=== PATIENT | female | born 1955 | race Two or more races ===

== ENCOUNTER 2017-04-29 12:17 | Emergency (ER) | payer MEDICAID ==
[~2017-04-29] VITALS: Ht 165.1 cm; Wt 86.2 kg
[2017-04-29 12:17] VITALS: BP 110/69
[~2017-04-29 12:17] MED LIST: ANAS5POW2 MC; FLUO25PO10 MC; METF500T4 PO; METO-306 PO; METO25TA6 PO
--- NOTE | 2017-04-29 12:17 | NUR ---
C/O ABDOMINAL DISTENTION, +JAUNDICE. PT STATES, ABD DISTENTION DEVELOPING OVER 2 WEEKS. NAD NOTED. PT AAO X4, AMB WITH STEADY GAIT. RR EVEN AND UNLABORED. VSS.
[2017-04-29 12:42] LABS: BASOPHILS # (AUTO) 0.4 /CMM (0.0-0.2); BASOPHILS % (AUTO) 4.2 % (0.0-2.0); EOSINOPHILS # (AUTO) 0.1 /CMM (0.0-0.7); EOSINOPHILS % (AUTO) 1.2 % (0.0-6.0); HEMATOCRIT 38 % (33-45); HEMOGLOBIN 12.7 g/dL (11.5-14.8); LYMPHOCYTES # (AUTO) 1.5 /CMM (0.8-4.8); LYMPHOCYTES % (AUTO) 17.9 % (20.0-44.0); MEAN CORPUSCULAR HEMOGLOBIN 35 PG (26.0-33.0); MEAN CORPUSCULAR HGB CONC 33 g/dl (31.0-36.0); MEAN CORPUSCULAR VOLUME 105 fL (82-100); MONOCYTES # (AUTO) 0.9 /CMM (0.1-1.30); MONOCYTES % (AUTO) 10.2 % (2.0-12.0); NEUTROPHILS # (AUTO) 5.6 /CMM (1.8-8.9); NEUTROPHILS % (AUTO) 66.5 % (43.0-81.0); PLATELET COUNT (AUTO) 131 /CMM (150-450); RDW COEFFICIENT OF VARIATION 14.6 (11.5-15.0); WHITE BLOOD COUNT (AUTO) 8.5 K/uL (4.3-11.0)
[2017-04-29] MEDS ORDERED: MORPHINE SULFATE INJ 4 MG/ML DISP.SYRIN ONE (12:54)
[2017-04-29] MEDS ORDERED: ONDANSETRON HCL/PF 4 MG/2 ML VIAL ONE (12:54)
[2017-04-29 12:58] LABS: INR 1.32 (0.87-1.13); PROTHROMBIN TIME 13.9 SECS (9.5-12.7)
[2017-04-29] MEDS ORDERED: ONDANSETRON HCL/PF 4 MG/2 ML VIAL IVP ONE (13:00)
[2017-04-29] MEDS ORDERED: MORPHINE SULFATE INJ 2 MG/ML DISP.SYRIN IV ONE (13:00)
--- NOTE | 2017-04-29 13:00 | NUR ---
PT SIGNED PARENTECIS CONSENT
[2017-04-29 13:01] LABS: ALBUMIN 2.7 g/dL (3.4-5.0); BILIRUBIN,DIRECT 4.8 mg/dL (0.0-0.2); BILIRUBIN,TOTAL 6.3 mg/dL (0.2-1.0); CALCIUM, SERUM 8.7 mg/dL (8.5-10.1); CREATININE 0.8 mg/dL (0.6-1.3); POTASSIUM 3.8 mmol/L (3.5-5.1); TOTAL PROTEIN, SERUM 7.4 g/dL (6.4-8.2)
--- NOTE | 2017-04-29 13:06 | NUR ---
ULTRASOUND AT BEDSIDE
[2017-04-29] MEDS ORDERED: LIDOCAINE 2%-EPI 1:100,000 30 ML VIAL ONE (13:24)
--- NOTE | 2017-04-29 13:40 | NUR ---
DR LEONARD AT BEDSIDE FOR PARACENTESIS
--- NOTE | 2017-04-29 14:28 | NUR ---
BODY FLUIDS SAMPLE SENT TO LAB
== END 2017-04-29 15:30 | disposition left against medical advice (07) ==
LOC: ER 12:18
DX: K70.30 Alcoholic cirrhosis of liver without ascites (principal); R18.8 Other ascites; E11.9 Type 2 diabetes mellitus without complications; I10 Essential (primary) hypertension; J45.909 Unspecified asthma, uncomplicated; K21.9 Gastro-esophageal reflux disease without esophagitis; Z85.3 Personal history of malignant neoplasm of breast
CPT/HCPCS: 36415; 76705; 80048; 80076; 83690; 85025; 85730; 87070; 89051; 93005; 96374; 96375; 99285; A4606; J2270; J2405; J3490; Z7610

== ENCOUNTER 2017-07-04 14:10 | Emergency (ER) | payer MEDICAID ==
[~2017-07-04] VITALS: Ht 167.6 cm; Wt 80.3 kg
--- NOTE | 2017-07-04 14:15 | NUR ---
PAOLO 38 FROM HOME C/O GENERALIZED WEAKNESS AND FAILURE TO THRIVE. PT AAOX2. PER PT SHE TOOK BLOODY , GABAPENTIN AND HER SON GAVE HER SOME MED LAST NIGHT. NOTED LETHARGIC. SEEN BY MD FOR EVAL. VSS. SAFETY AND COMFORT MEASURES PROVIDED. WILL MONITOR.
[2017-07-04] MEDS ORDERED: PANTOPRAZOLE 40 MG VIAL IV ONE (14:30)
[2017-07-04] MEDS ORDERED: PANTOPRAZOLE 40 MG VIAL ONE (14:31)
--- NOTE | 2017-07-04 14:40 | NUR ---
IV ACCESS STARTED. PT MEDICATED ORDERED. TREATMENT SPECIALIST AT FOR BLOOD DRAW.
[2017-07-04 14:54] LABS: BASOPHILS % (AUTO) 0.5 % (0.0-2.0); EOSINOPHILS # (AUTO) 0.1 /CMM (0.0-0.7); EOSINOPHILS % (AUTO) 2.5 % (0.0-6.0); HEMATOCRIT 40 % (33-45); LYMPHOCYTES # (AUTO) 1.2 /CMM (0.8-4.8); LYMPHOCYTES % (AUTO) 26.6 % (20.0-44.0); MEAN CORPUSCULAR HEMOGLOBIN 32 PG (26.0-33.0); MEAN CORPUSCULAR HGB CONC 33 g/dl (31.0-36.0); MEAN CORPUSCULAR VOLUME 97 fL (82-100); MONOCYTES # (AUTO) 0.4 /CMM (0.1-1.30); MONOCYTES % (AUTO) 8.4 % (2.0-12.0); NEUTROPHILS # (AUTO) 2.7 /CMM (1.8-8.9); PLATELET COUNT (AUTO) 88 /CMM (150-450); RED BLOOD CELL COUNT(AUTO) 4.08 MIL/uL (4.0-5.2); WHITE BLOOD COUNT (AUTO) 4.4 K/uL (4.3-11.0)
[2017-07-04 15:08] LABS: CALCIUM, SERUM 9.4 mg/dL (8.5-10.1); CARBON DIOXIDE 28 mmol/L (21-32); CHLORIDE 104 mmol/L (98-107); CREATININE 0.9 mg/dL (0.6-1.3); GLUCOSE 188 mg/dL (74-106); POTASSIUM 3.8 mmol/L (3.5-5.1); SODIUM SERUM 140 mmol/L (136-145); UREA NITROGEN, BLOOD 11 mg/dL (7-18)
[2017-07-04] MEDS ORDERED: GABA-534 PO (15:12)
[2017-07-04] MEDS ORDERED: LOSA25TA13 PO (15:12)
[2017-07-04] MEDS ORDERED: METO25TA6 PO (15:12)
[2017-07-04] MEDS ORDERED: FURO-145 PO (15:12)
[2017-07-04] MEDS ORDERED: PROP20TA22 PO (15:12)
[2017-07-04] MEDS ORDERED: DICL100G26 TP (15:12)
[2017-07-04] MEDS ORDERED: GLIM2TAB2 PO (15:12)
[2017-07-04 15:14] LABS: ALANINE AMINOTRANSFERASE 23 U/L (12-78); ALBUMIN 3.3 g/dL (3.4-5.0); ALKALINE PHOSPHATASE 99 U/L (46-116); ASPARTATE AMINOTRANSFERASE 48 U/L (15-37); BILIRUBIN,DIRECT 0.8 mg/dL (0.0-0.2); BILIRUBIN,TOTAL 1.9 mg/dL (0.2-1.0); LIPASE 115 U/L (73-393); TOTAL PROTEIN, SERUM 7.6 g/dL (6.4-8.2)
[2017-07-04 15:17] LABS: TROPONIN I < 0.017 ng/mL (0.00-0.056)
[2017-07-04 15:58] LABS: APPEARANCE,URINE Clear (CLEAR); BILIRUBIN,URINE Negative (NEGATIVE); BLOOD, URINE Negative Ery/uL (NEGATIVE); COLOR,URINE Dark (YELLOW); KETONES,URINE Negative (NEGATIVE); LEUKOCYTE ESTERASE ,URINE Negative (NEGATIVE); NITRITE, URINE Negative (NEGATIVE); PH,URINE 6.5 (5.0-8.0); PROTEIN,URINE Negative (NEGATIVE); UGLUCOSE Negative (NEGATIVE); UROBILINOGEN,URINE 0.2 EU/dL (0.2)
--- NOTE | 2017-07-04 16:10 | NUR ---
KELLY CHAVEZ (BROTHER) [phone].
--- NOTE | 2017-07-04 18:25 | NUR ---
CALLED ARTIST SUSPECT ON FILE,KELLY, LEFT A MESSAGE
--- NOTE | 2017-07-04 18:35 | NUR ---
CALLED PATIENT'S MOTHER, SHE WILL COME PICK HER UP
--- NOTE | 2017-07-04 18:45 | NUR ---
Patient discharged to home in stable condition. Written and verbal after care instructions given. Patient verbalizes understanding of instruction. IV removed. Catheter intact and site benign. Pressure and 4x4 applied to site. No bleeding noted.
[2017-07-04 19:07] VITALS: BP 121/84
[2017-07-04] MEDS ORDERED: IV D5/0.45 NACL 1,000 ML IV PRN (19:45)
[2017-07-04] MEDS ORDERED: MAG HYDROX/AL HYDROX/SIMETH 30 ML UDC PO PRN (20:00)
[2017-07-04] MEDS ORDERED: HYDROCODONE/APAP 5/325MG 1 EACH TABLET PO PRN (20:00)
[2017-07-04] MEDS ORDERED: MAGNESIUM HYDROXIDE 30 ML UDC PO PRN (20:00)
[2017-07-04] MEDS ORDERED: Z GUARD REMEDY 2 OZ OINT TP PRN (20:00)
[2017-07-04] MEDS ORDERED: ACETAMINOPHEN 325 MG TABLET PO PRN (20:00)
[2017-07-04] MEDS ORDERED: ZOLPIDEM TARTRATE 5 MG TABLET PO PRN (20:00)
[2017-07-04] MEDS ORDERED: Folic acid 1 MG in IV D5W 50 ML IV SCH (20:00)
[2017-07-04] MEDS ORDERED: Thiamine 100 MG in IV D5W 50 ML IV SCH (20:00)
[2017-07-04] MEDS ORDERED: ONDANSETRON HCL/PF 4 MG/2 ML VIAL IVP PRN (20:00)
[2017-07-04 20:26] LABS: AMYLASE 35 U/L (25-115); LIPASE 101 U/L (73-393)
[2017-07-04] MEDS ORDERED: GABAPENTIN 300 MG CAPSULE PO SCH (22:00)
[2017-07-05] MEDS ORDERED: PANTOPRAZOLE 40 MG TABLET.DR PO SCH (07:30)
[2017-07-05] MEDS ORDERED: LOSARTAN POTASSIUM 25 MG TABLET PO SCH (09:00)
[2017-07-05] MEDS ORDERED: PROPRANOLOL HCL 20 MG PO SCH (09:00)
[2017-07-05] MEDS ORDERED: GLIMEPIRIDE 2 MG PO SCH (09:00)
[2017-07-05] MEDS ORDERED: METOPROLOL TARTRATE 25 MG TABLET PO SCH (09:00)
== END 2017-07-04 19:09 | disposition home or self-care (01) ==
LOC: ER 14:11 → MED 18:13 → UNDOADMIN 18:13 → ER 19:09
DX: R41.82 Altered mental status, unspecified (principal); J45.909 Unspecified asthma, uncomplicated; K21.9 Gastro-esophageal reflux disease without esophagitis; I10 Essential (primary) hypertension
CPT/HCPCS: 36415; 70450; 71010; 80048; 80076; 81001; 82140; 82150; 82553; 83036; 83690 ×2; 84484; 85025; 87081; 87086; 93005; 96374; 99285; A4606; C9113; G0480; Z7610; 81000-TC; J3411; J3490; J7060

== ENCOUNTER 2017-11-21 00:21 | Inpatient (IN) | payer MEDICAID ==
[2017-11-21] VITALS (67 sets, daily range): BP systolic 38–143; BP diastolic 20–112
[~2017-11-21] VITALS: Ht 167.6 cm; Wt 83.5 kg
[~2017-11-21 00:21] MED LIST changes: -ANAS5POW2 MC; +DICL100G26 TP; -FLUO25PO10 MC; +FURO-145 PO; +GABA-534 PO; +GLIM2TAB2 PO; +LOSA25TA13 PO; -METO-306 PO; +PROP20TA22 PO
--- NOTE | 2017-11-21 00:40 | NUR ---
PAOLO COLLINS HOME FOR REPORT ACTIVELY VOMITING BLOOD S/P DRINKING WINE X TODAY. AOX3 W/ RESP EVEN & UNLABORED, TACHYCARDIC, VOMITING DARK RED GASTRIC CONTENT W/ NO ASPIRATION NOTED. PLACED W/ HOB ELEVATED, ON CONTINUOUS PULSE-OX W/ CARDIAC MONITORING. IVHL ESTABLISHED, LABS DRAWN & SENT.
[2017-11-21] MEDS ORDERED: PANTOPRAZOLE 40 MG VIAL ONE (00:42)
[2017-11-21] MEDS ORDERED: ONDANSETRON HCL/PF 4 MG/2 ML VIAL ONE (00:43)
[2017-11-21 00:48] LABS: BASOPHILS # (AUTO) 0.1 /CMM (0.0-0.2); BASOPHILS % (AUTO) 0.8 % (0.0-2.0); EOSINOPHILS # (AUTO) 0.2 /CMM (0.0-0.7); EOSINOPHILS % (AUTO) 1.6 % (0.0-6.0); HEMATOCRIT 34 % (33-45); HEMOGLOBIN 11.8 g/dL (11.5-14.8); LYMPHOCYTES # (AUTO) 2.2 /CMM (0.8-4.8); MEAN CORPUSCULAR HEMOGLOBIN 34 PG (26.0-33.0); MEAN CORPUSCULAR HGB CONC 35 g/dl (31.0-36.0); MEAN CORPUSCULAR VOLUME 96 fL (82-100); MONOCYTES % (AUTO) 9.2 % (2.0-12.0); NEUTROPHILS # (AUTO) 7.2 /CMM (1.8-8.9); NEUTROPHILS % (AUTO) 67.4 % (43.0-81.0); PLATELET COUNT (AUTO) 105 /CMM (150-450); RDW COEFFICIENT OF VARIATION 15.2 (11.5-15.0); RED BLOOD CELL COUNT(AUTO) 3.49 MIL/uL (4.0-5.2); WHITE BLOOD COUNT (AUTO) 10.6 K/uL (4.3-11.0)
[2017-11-21] MEDS ORDERED: ONDANSETRON HCL/PF 4 MG/2 ML VIAL IVP ONE (01:00)
[2017-11-21] MEDS ORDERED: PANTOPRAZOLE 80 MG in IV NS 0.9% 500 ML IV ONE (01:00)
[2017-11-21] MEDS ORDERED: IV NS 0.9% 500 ML BAG IV ONE (01:00)
[2017-11-21 01:01] LABS: CALCIUM, SERUM 8.8 mg/dL (8.5-10.1); CARBON DIOXIDE 23 mmol/L (21-32); CHLORIDE 97 mmol/L (98-107); GLUCOSE 158 mg/dL (74-106); POTASSIUM 4.4 mmol/L (3.5-5.1); SODIUM SERUM 132 mmol/L (136-145); UREA NITROGEN, BLOOD 17 mg/dL (7-18)
[2017-11-21 01:04] LABS: INR 1.27 (0.87-1.13); PROTHROMBIN TIME 13.2 SECS (9.5-12.7)
[2017-11-21 01:07] LABS: ALANINE AMINOTRANSFERASE 64 U/L (12-78); ALBUMIN 3.3 g/dL (3.4-5.0); ALKALINE PHOSPHATASE 148 U/L (46-116); ASPARTATE AMINOTRANSFERASE 138 U/L (15-37); BILIRUBIN,DIRECT 0.9 mg/dL (0.0-0.2); BILIRUBIN,TOTAL 1.9 mg/dL (0.2-1.0); LIPASE 185 U/L (73-393); TOTAL PROTEIN, SERUM 8.2 g/dL (6.4-8.2)
[2017-11-21 01:08] LABS: TROPONIN I < 0.017 ng/mL (0.00-0.056)
--- NOTE | 2017-11-21 01:28 | NUR ---
pt does not know what medications she takes at home, will call son to bring home medications.
--- NOTE | 2017-11-21 01:42 | NUR ---
SENT TO CT.
--- NOTE | 2017-11-21 02:24 | NUR ---
pt assisted to bedpan, perineal care provided. pt requesting protein shake. pt instructed unable to eat at this time and must remain NPO until further notice. On continuous monitoring.
--- NOTE | 2017-11-21 03:31 | NUR ---
Report given to TEX Thorpe for pt admission tele rm [id number].
--- NOTE | 2017-11-21 04:05 | NUR ---
DORR OPERATOR ADMITTING NOTES: ADMITTED A 62 YO FEMALE PATIENT WHO WAS BROUGHT BY AMBULANCE TO ER AFTER HAVING BLOODY VOMITING, PER PATIENT, AFTER DRINKING WINE AT HOME. PATIENT WAS BROUGHT TO TELE FLOOR VIA JOJO, AOX3, ON ROOM AIR, BREATHING EVEN AND UNLABORED. BREATH SOUNDS CLEAR TO AUSCULTATION. PATIENT COMPLAINS OF NAUSEA AT THIS TIME. MAINTAINED HOB ELEVATED. ON TELE MONITOR: SINUS TACHYCARDIA AT RATE OF 115. PIV OVER RFA G 18 INTACT AND INFUSING WITH PROTONIX DRIP RUNNING AT 52 ML/HR. NO SIGNS OF INFILTRATION NOTED. PROVIDED FOR COMFORT AND SAFETY. BED IN LOWEST AND LOCKED POSITION, SIDERAILS UP X3, CALL LIGHT WITHIN REACH. WILL CONT TO MONITOR.
[2017-11-21] MEDS ORDERED: IV NS 0.9% 1,000 ML IV PRN ×2 (04:45→19:30)
[2017-11-21] MEDS ORDERED: ZOLPIDEM TARTRATE 5 MG TABLET PO PRN (05:00)
[2017-11-21] MEDS ORDERED: MAG HYDROX/AL HYDROX/SIMETH 30 ML UDC PO PRN (05:00)
[2017-11-21] MEDS ORDERED: MAGNESIUM HYDROXIDE 30 ML UDC PO PRN (05:00)
[2017-11-21] MEDS ORDERED: HYDROCODONE/APAP 5/325MG 1 EACH TABLET PO PRN (05:00)
[2017-11-21] MEDS ORDERED: ACETAMINOPHEN 325 MG TABLET PO PRN (05:00)
[2017-11-21] MEDS ORDERED: Z GUARD REMEDY 2 OZ OINT TP PRN (05:00)
--- NOTE | 2017-11-21 05:06 | NUR ---
RN NOTES: PT VOMITED BRIGHT RED, BLOODY EMESIS, NOTED WITH CLOTS. PAGED DR MENESES TO INFORM.
[2017-11-21] MEDS ORDERED: METOCLOPRAMIDE HCL 10 MG/2 ML VIAL ONE (05:29)
[2017-11-21] MEDS ORDERED: METOCLOPRAMIDE HCL 10 MG/2 ML VIAL IV PRN (05:30)
--- NOTE | 2017-11-21 05:44 | NUR ---
RN NOTES: ASKED PATIENT FOR IV TO BE REINSERTED OVER L ARM, HOWEVER, PATIENT REFUSED AT THIS TIME, SAYING SHE WAS "TOO TIRED AND NAUSEOUS" AND ASKED THAT IT BE DONE AFTER A COUPLE OF HOURS.
[2017-11-21] MEDS: ONDANSETRON HCL/PF 4 MG/2 ML VIAL IVP PRN ×2 (06:56→12:09)
--- NOTE | 2017-11-21 07:20 | NUR ---
RN NOTES PT IS SITTING UP IN BED, VOMITING BRIGHT RED BLOODY AND CLOTTED EMESIS. BP 150/78, P 130'S. O2 PLACED ON PT. SON IS AT BEDSIDE. SAFETY MEASURES ARE IN PLACE, CALL LIGHT IS IN REACH. WILL CONTINUE TO MONITOR AND INFORM MD.
--- NOTE | 2017-11-21 07:32 | NUR ---
RN NOTES: PATIENT VOMITED BRIGHT RED BLOODY EMESIS, WITH CLOTTED BLOOD, ON EMESIS BASIN, APPROX 200 ML. BPCHECKED AT 151/81, HR: 136 AT THIS TIME, O2 SAT 94%. PATIENT ALSO COMPLAINING OF 5/10 ABDL PAIN. CALLED BRADLEY ROSS TYPEWRITER ASSEMBLER TO REPORT. TYPEWRITER ASSEMBLER ORDERED FOR STAT H AND H, AND MORPHINE 2 MG IV ONE DOSE ONLY. DECLINED TO HAVE IV ANXIOLYTIC ORDERED AT THIS TIME (REQUESTED BY SON, AMELIA). NOTED AND CARRIED OUT.
--- NOTE | 2017-11-21 07:40 | NUR ---
LUBE TECHNICIAN CLOSING NOTES: PATIENT IN BED, AOX3, ON O2 AT 2 LPM VIA NC, BREATHING EVEN AND UNLABORED. PATIENT IS STILL NAUSEOUS. ON TELE MONITORING; SINUS TACHYCARDIA AT RATE OF 116. DUE MEDS GIVEN. PROVIDED FOR COMFORT AND SAFETY. BED IN LOWEST AND LOCKED POSITION, SIDERAILS UP X 3, HOB ELEVATED. SON AT BEDSIDE. ENDORSED TO AM RN FOR DWIGHT.
[2017-11-21] MEDS ORDERED: TRAM50TA2 PO (07:57)
[2017-11-21] MEDS ORDERED: MAGN400T6 PO (07:57)
[2017-11-21] MEDS ORDERED: HYDR-552 PO (07:57)
[2017-11-21] MEDS ORDERED: GLIM2TAB2 PO (07:57)
[2017-11-21] MEDS ORDERED: CLON0.5T4 PO (07:57)
[2017-11-21] MEDS ORDERED: VIT D PO (07:57)
[2017-11-21] MEDS ORDERED: LACT10SO PO (07:57)
[2017-11-21] MEDS ORDERED: FLUO-119 PO (07:57)
[2017-11-21] MEDS ORDERED: METO25TA6 PO (07:57)
[2017-11-21] MEDS ORDERED: MORPHINE SULFATE INJ 4 MG/ML DISP.SYRIN IV ONE (08:00)
[2017-11-21] MEDS ORDERED: MORPHINE SULFATE INJ 2 MG/ML DISP.SYRIN IV ONE (08:00)
[2017-11-21] MEDS: PANTOPRAZOLE 40 MG VIAL IV SCH ×2 (08:02→21:00)
[2017-11-21 08:06] LABS: HEMATOCRIT 25 % (33-45); HEMOGLOBIN 8.8 g/dL (11.5-14.8); MEAN CORPUSCULAR HEMOGLOBIN 34 PG (26.0-33.0); MEAN CORPUSCULAR HGB CONC 35 g/dl (31.0-36.0); MEAN CORPUSCULAR VOLUME 98 fL (82-100); PLATELET COUNT (AUTO) 96 /CMM (150-450); WHITE BLOOD COUNT (AUTO) 9.3 K/uL (4.3-11.0)
--- NOTE | 2017-11-21 10:00 | NUR ---
FRAMING MANAGER NOTES RECEIVED PATIENT FROM MARIA ISABEL NICE FROM MED SURG UNIT, PATIENT AOX3, ON TELE MONITOR ST, CURRENTLY NPO FOR GI BLEED, RECEIVING PROTONIX GTT R FA 18GTT, AND NS @ 75 ML/HR, IN DIAPER, BED IN LOW AND LOCKED POSITION, CALL LIGHT WITHIN REACH WILL CONTINUE TO MONITOR.
--- NOTE | 2017-11-21 10:20 | NUR ---
RN NOTES PT TRANSFERRED TO ICU, REPORT GIVEN TO JUAN CARLOS NICE
[2017-11-21 10:47] LABS: HEMOGLOBIN 11.8 g/dL (11.5-14.8)
[2017-11-21] MEDS ORDERED: IV D5/ 0.9% NACL 1,000 ML IV PRN (11:00)
[2017-11-21] MEDS ORDERED: LORAZEPAM INJ 2 MG/ML VIAL IV PRN (11:00)
[2017-11-21] MEDS: OCTREOTIDE 1,250 MCG in IV NS 0.9% 247.5 ML IV PRN (11:51)
[2017-11-21 12:49] LABS: HEMOGLOBIN 8.4 g/dL (11.5-14.8)
--- NOTE | 2017-11-21 14:00 | NUR ---
MARINE SERVICE OPERATOR NOTES PATIENT RECEIVED ATIVAN IV DUE TO RESTLESSNESS, NO SIGNS OF DISTRESS WILL CONTINUE TO MONITOR.
--- NOTE | 2017-11-21 14:48 | NUR ---
HUB BORER NOTES PATIENT RECEIVING FIRST FIRST UNIT OF BLOOD. NO SIGNS OF DISTRESS OR ADVERSE REACTIONS.
--- NOTE | 2017-11-21 15:45 | NUR ---
SODIUM CHLORITE OPERATOR NOTES PATIENT IS RECEIVING BLOOD AND BLOOD PRESSURE TRENDING DOWN 70/32 AND 73/[address] HOBBS ORDERS GIVEN TO BOLUS 1L NS. WILL CARRY OUT ORDERS AND WILL CONTINUE TO MONITOR.
[2017-11-21] MEDS ORDERED: IV NS 0.9% 1,000 ML IV ONE (16:00)
[2017-11-21] MEDS ORDERED: NOREPINEPHRINE 8 MG in IV D5W 500 ML IV PRN (16:00)
--- NOTE | 2017-11-21 16:00 | NUR ---
RATE SUPERVISOR INITIAL NOTE RECEIVED REPORT FROM JUAN CARLOS NICE. PT IN BED. AWAKE AND ALERT WITH SOME MOANING. PT IS CURRENTLY RECEIVING BLOOD TRANSFUSION. PT IS ALSO RECEIVING 1L BOLUS FOR HYPOTENSION BP IN THE 70'S. LUNG SOUNDS CLEAR. BOWEL SOUNDS PRESENT. PT IS COMPLAINING OF ABDOMINAL PAIN. PULSES PRESENT. IV PATENT AND INTACT. BED IN LOW LOCKED POSITION. CALL LIGHT WITHIN REACH. WILL CONTINUE TO MONITOR.
[2017-11-21] MEDS: NICOTINE PATCH (14MG) 14 MG PATCH.TD24 TD SCH (16:05)
--- NOTE | 2017-11-21 16:05 | NUR ---
COFFEE FARMER NOTES GAVE REPORT TO TEX BEDOYA FOR CONTINUITY OF CARE, PATIENT RECEIVING BLOOD TRANSFUSION AND FLUIDS AT THIS TIME. ALL NEEDS AT THIS TIME
--- NOTE | 2017-11-21 16:40 | NUR ---
FENCE INSTALLER BLOOD TRANSFUSION COMPLETE. PT TOLERATED WELL. 1L BOLUS STILL CURRENTLY RUNNING. WILL CONTINUE TO CLOSELY MONITOR.
--- NOTE | 2017-11-21 17:45 | NUR ---
PROVIDER RELATIONS MANAGER PT ON LEVOPHED FOR LOW BP IN THE 70'S. PICC LINE NURSE AT BEDSIDE TO PLACE LINE. DR HOBBS AGREES WITH PICC LINE PLACEMENT. PT SIGNED CONSENT. WILL CONTINUE TO CLOSELY MONITOR.
--- NOTE | 2017-11-21 18:00 | NUR ---
BAR ATTENDANT PT HAS A NOTED RHYTHM CHANGE ON THE MONITOR, FROM NSR WITH PAC TO AFIB. WILL VERIFY WITH EKG.
[2017-11-21] MEDS: SUCRALFATE 1 G TABLET PO SCH (18:09)
[2017-11-21] MEDS: BLOOD SUGAR DIAGNOSTIC 1 EACH STRIP IN SCH (18:09)
--- NOTE | 2017-11-21 18:35 | NUR ---
POULTRY TRIMMER PT HR CONVERTED INTO SINUS TACHY WITH A RATE OF 140'S.
[2017-11-21 18:48] LABS: EOSINOPHILS % (AUTO) 0.2 % (0.0-6.0); HEMATOCRIT 21 % (33-45); HEMOGLOBIN 7.1 g/dL (11.5-14.8); LYMPHOCYTES # (AUTO) 1.3 /CMM (0.8-4.8); LYMPHOCYTES % (AUTO) 7.8 % (20.0-44.0); MEAN CORPUSCULAR HEMOGLOBIN 32 PG (26.0-33.0); MEAN CORPUSCULAR HGB CONC 33 g/dl (31.0-36.0); MEAN CORPUSCULAR VOLUME 97 fL (82-100); MONOCYTES # (AUTO) 1.9 /CMM (0.1-1.30); MONOCYTES % (AUTO) 11.2 % (2.0-12.0); NEUTROPHILS # (AUTO) 13.6 /CMM (1.8-8.9); NEUTROPHILS % (AUTO) 80.8 % (43.0-81.0); PLATELET COUNT (AUTO) 74 /CMM (150-450); RDW COEFFICIENT OF VARIATION 18.8 (11.5-15.0); WHITE BLOOD COUNT (AUTO) 16.9 K/uL (4.3-11.0)
--- NOTE | 2017-11-21 18:55 | NUR ---
CARVING MACHINE OPERATOR PT ABG NOT GOOD. REPORTED TO DR URBINA. ORDERS RECEIVED. WILL CARRY OUT AND CONTINUE TO MONITOR.
[2017-11-21] MEDS ORDERED: SUCCINYLCHOLINE CHLORIDE 20 MG/ML VIAL IV ONE (19:00)
[2017-11-21] MEDS ORDERED: ETOMIDATE 2 MG/ML VIAL IV ONE (19:00)
[2017-11-21] MEDS ORDERED: NOREPINEPHRINE 4 MG/4 ML AMPUL IV ONE ×2 (19:21→19:22)
[2017-11-21] MEDS ORDERED: PHENYLEPHRINE 10 MG/ML VIAL ONE (19:22)
[2017-11-21] MEDS ORDERED: PHENYLEPHRINE 40 MG in IV D5W 250 ML IV PRN (19:30)
--- NOTE | 2017-11-21 19:30 | NUR ---
SPRAY FOAM INSTALLER DR RAINA DAVID MD INTUBATED PT WITH ANABEL RT AT BEDSIDE.
[2017-11-21 19:43] LABS: ABG BASE EXCESS -27.8 mmol/L; ABG OXYGEN SATURATION 95.6 % (92.0-98.5); ABG PCO2 17.8 mmHg (35.0-45.0); ABG PH 6.887 (7.350-7.450); ABG PO2 130.9 mmHg (75.0-100.0); AaDO2 76.4 mmHg; COHb 0.3 % (0.5-1.5); MetHb 1.1 % (0.0-1.5); O2Hb 94.3 % (94.0-97.0); SITE, ABG Left Radial; VENT MODE, BG N/C
--- NOTE | 2017-11-21 19:52 | NUR ---
IMMIGRATION PATROL INSPECTOR OR TEAM AT BEDSIDE WITH DR STANTON. THEY ARE PREPARING TO DO A EGD. WILL CONTINUE TO MONITOR.
[2017-11-21 20:11] LABS: ABG BASE EXCESS -29.1 mmol/L; ABG PCO2 29.2 mmHg (35.0-45.0); ABG PH 6.763 (7.350-7.450); ABG PO2 452.3 mmHg (75.0-100.0); AaDO2 231.5 mmHg; COHb 0.3 % (0.5-1.5); O2Hb 97.7 % (94.0-97.0); PEEP,BG 5 cm H2O; SITE, ABG Left Brachial; VENT MODE, BG A/C 20 450 100 +5; VT, ABG 450 mL
[2017-11-21] MEDS ORDERED: SODIUM BICARBONATE SYR 50 MEQ/50 ML DISP.SYRIN ONE ×2 (20:20→20:28)
--- NOTE | 2017-11-21 20:20 | NUR ---
BEHAVIORAL HEALTH CONSULTANT OG TUBE REMOVED PER DR STANTON REQUEST. SAID TO RE INSERT AFTER PROCEDURE.
--- NOTE | 2017-11-21 20:25 | NUR ---
LOAN COUNSELOR 1ST UNIT OF PRBC BEING ADMINISTERED. DR STANTON AND OR TEAM AT BEDSIDE PERFORMING AN EGD. WILL CONTINUE TO MONITOR.
[2017-11-21] MEDS ORDERED: SODIUM BICARBONATE SYR 50 MEQ/50 ML DISP.SYRIN IV ONE (20:30)
[2017-11-21] MEDS ORDERED: Sodium Bicarbonate 150 MEQ in IV D5W 1,000 ML IV PRN (20:30)
[2017-11-21] MEDS ORDERED: ANESTHESIA TRAY IN PYXIS 1 EA TRAY MC ONE (20:44)
[2017-11-21] MEDS ORDERED: VASOPRESSIN INJ 50 UNIT in IV D5W 497.5 ML IV PRN (21:30)
--- NOTE | 2017-11-21 22:45 | NUR ---
MATRIX INSPECTOR FAITH RN RECOVERED PT. PT IS INTUBATED AND SEDATED. ON PROPOFOL AND 2 PRESSORS RUNNING FOR BP SUPPORT. WILL CONTINUE TO MONITOR.
[2017-11-21] MEDS: NOREPINEPHRINE 16 MG in IV D5W 500 ML IV PRN (22:54)
[2017-11-21] MEDS ORDERED: NOREPINEPHRINE 16 MG in IV D5W 500 ML IV PRN (23:00)
[2017-11-21 23:21] LABS: HEMOGLOBIN 8.8 g/dL (11.5-14.8)
[2017-11-21] MEDS: PHENYLEPHRINE 80 MG in IV D5W 250 ML IV PRN (23:46)
[2017-11-21] MEDS: PROPOFOL 10MG/ML 50ML 50 ML IV PRN (23:51)
[2017-11-22] VITALS (71 sets, daily range): BP systolic 53–156; BP diastolic 20–114
[2017-11-22] MEDS ORDERED: PROPOFOL 100 ML IV PRN
[2017-11-22] MEDS: BLOOD SUGAR DIAGNOSTIC 1 EACH STRIP IN SCH ×4 (00:26→12:07)
[2017-11-22] MEDS ORDERED: DEXTROSE 50%-WATER 50 ML DISP.SYRIN IV PRN (00:30)
--- NOTE | 2017-11-22 01:00 | NUR ---
INFANTRY UNIT LEADER PT HR SUSTAINED HIGH 160, NOTIFIED NO NEW ORDERS. ALSO NOTIFIED ABOUT LACTIC REFLEX 25.5. NEW ORDERS RECEIVED FOR MODERATE SS COVERAGE. WILL CONTINUE TO MONITOR.
[2017-11-22] MEDS: INSULIN REGULAR, HUMAN 100 UNIT/ML 3 ML VIAL SQ PRN ×3 (01:30→12:09)
--- NOTE | 2017-11-22 01:31 | NUR ---
BUSINESS PROCESS ANALYST HR CONVERTED TO 98.
[2017-11-22] MEDS: PROPOFOL 10MG/ML 50ML 50 ML IV PRN ×7 (01:46→14:10)
[2017-11-22 03:15] LABS: HEMOGLOBIN 7.7 g/dL (11.5-14.8)
--- NOTE | 2017-11-22 03:25 | NUR ---
ARABIC LINGUIST EPIC PUNCH OPERATOR NOTIFIED ABOUT H/H TRENDING DOWN. NO NEW ORDERS AT THIS TIME. WILL CONTINUE TO MONITOR.
[2017-11-22] MEDS ORDERED: VASOPRESSIN INJ 20 UNIT/ML VIAL ONE (04:12)
--- NOTE | 2017-11-22 04:30 | NUR ---
MANAGER OF WAREHOUSE PT STARTED ON THIRD PRESSORS, VASOPRESSIN FOR BLOOD PRESSURE SUPPORT.
[2017-11-22 05:29] LABS: BASOPHILS % (AUTO) 0.1 % (0.0-2.0); EOSINOPHILS % (AUTO) 0.2 % (0.0-6.0); HEMATOCRIT 23 % (33-45); HEMOGLOBIN 7.7 g/dL (11.5-14.8); LYMPHOCYTES # (AUTO) 1.7 /CMM (0.8-4.8); LYMPHOCYTES % (AUTO) 9.4 % (20.0-44.0); MEAN CORPUSCULAR HEMOGLOBIN 33 PG (26.0-33.0); MEAN CORPUSCULAR HGB CONC 34 g/dl (31.0-36.0); MEAN CORPUSCULAR VOLUME 96 fL (82-100); MONOCYTES # (AUTO) 0.7 /CMM (0.1-1.30); MONOCYTES % (AUTO) 3.7 % (2.0-12.0); NEUTROPHILS # (AUTO) 15.9 /CMM (1.8-8.9); NEUTROPHILS % (AUTO) 86.6 % (43.0-81.0); RDW COEFFICIENT OF VARIATION 19.5 (11.5-15.0); RED BLOOD CELL COUNT(AUTO) 2.35 MIL/uL (4.0-5.2); WHITE BLOOD COUNT (AUTO) 18.4 K/uL (4.3-11.0)
[2017-11-22] MEDS: SUCRALFATE 1 G TABLET PO SCH ×3 (05:31→11:07)
[2017-11-22] MEDS: PHENYLEPHRINE 80 MG in IV D5W 250 ML IV PRN ×2 (05:33→10:13)
[2017-11-22 05:48] LABS: CALCIUM, SERUM 6.8 mg/dL (8.5-10.1); CREATININE 2.7 mg/dL (0.6-1.3); MAGNESIUM 1.6 mg/dL (1.8-2.4)
[2017-11-22 05:49] LABS: PLATELET COUNT (AUTO) 37 /CMM (150-450)
--- NOTE | 2017-11-22 06:00 | NUR ---
BATH STEWARD/STEWARDESS PT AM BS 415. COVERAGE GIVEN. EPIC SCREEN REPAIRER CRUSHER NOTIFIED.
--- NOTE | 2017-11-22 06:05 | NUR ---
TEMPLATE MAKER CRITICAL LABS K 7.1, phos 9.0, co2 5. Will report to clinical practitioner.
[2017-11-22 06:07] LABS: POTASSIUM 7.2 mmol/L (3.5-5.1)
[2017-11-22] MEDS: NOREPINEPHRINE 16 MG in IV D5W 500 ML IV PRN ×2 (06:41→13:20)
--- NOTE | 2017-11-22 06:50 | NUR ---
MULTIPLE GAMES DEALER ED GLASS BREAKER CALLED KELLY BROTHER PF PATIENT ABOUT PT CONDITION. PT IS VERY CRITICAL AND UNSTABLE. ED DISCUSSED THE CASE THOROUGHLY WITH HIM AND KELLY AGREED DNR IS THE BEST CODE STATUS. WILL ENDORSE TO EPIC TEAM.
--- NOTE | 2017-11-22 07:15 | NUR ---
BOX ATTACHER NOTES RECEIVED PATIENT SEDATED , ETT 7. WITH SPO2 OF 100% VIA MECHANICAL VENTILATOR SETTINGS ORDERED , DEEP SHALLOW RESPIRATIONS , ST 120 ON BEDSIDE MONITOR , NGT ON LOW INTERMITTENT SUCTION DRAINING WITH BLOODY OUTPUT , FC DRAINING VIA GRAVITY WITH CLEAR YELLOW URINE , AYESHA PICC LINE PATENT AND INTACT WITH LEVOPHED @ 40MCG/MIN , NEOSYNEPRINE @ 300MCG/MIN , VASOPRESSIN @ 0.04U/MIN , SANDOSTATIN @ 50ML/HR , DIPRIVAN @ 40MCG/KG/MIN , NA BICARBONATE DRIP @ 125ML/HR INFUSING WELL , WILL CONTINUE TO MONITOR
--- NOTE | 2017-11-22 07:30 | NUR ---
HOSE SPRAYER NOTES SEEN AND EVALUAED BY DR URBINA , DISCUSSED LABS , ABG . PT ON MULTIPLE PRESSORS , CODE STATUS CLIVER MD AWARE
[2017-11-22] MEDS: LORAZEPAM INJ 2 MG/ML VIAL IV PRN ×3 (08:52→15:35)
[2017-11-22] MEDS: PANTOPRAZOLE 40 MG VIAL IV SCH (08:52)
[2017-11-22] MEDS: NICOTINE PATCH (14MG) 14 MG PATCH.TD24 TD SCH (08:52)
--- NOTE | 2017-11-22 09:30 | NUR ---
KERSEY DEPARTMENT SUPERVISOR NOTES RECEIVED A CALL FROM DR STANTON, DISCUSSED LABS , PUPILS FIXED AND DILATED 5MM , SR - ST 110 WITH EPISODES OF AFIB ON BEDSIDE MONITOR , NGT ON LOW INTERMITTENT SUCTION WITH MODERATE AMOUNT OF BLOODY SECRETION , FC DRAINING WITH LOW URINE OUTPUT , ON 3 PRESSORS MAXED DOSE . MD PARK
--- NOTE | 2017-11-22 09:50 | NUR ---
HEATER FURNACE NOTES SEEN AND EVALUATED BY DR MERRILL, DISCUSSED LABS , ABG RESULT , ORDERED TO CHANGE VENT SETTINGS TO AC 26 , TV 450 FIO2 100 PEEP O SPO2 OF 72-75% , PUPILS FIXED AND DILATED 5MM , SR - ST 110 WITH EPISODES OF AFIB ON BEDSIDE MONITOR , NGT ON LOW INTERMITTENT SUCTION WITH MODERATE AMOUNT OF BLOODY SECRETION , FC DRAINING WITH LOW URINE OUTPUT , NO SODIUM BICARB DRIP AVAILABLE PER [facility] , VERIFIED IF HE STILL WANT THE ABG @ 0800 , AWARE
[2017-11-22 10:10] LABS: NEUTROPHILS % (MANUAL) 77 (42-76)
[2017-11-22 10:11] LABS: LYMPHOCYTES % (MANUAL) 23 % (16-48)
[2017-11-22] MEDS: OCTREOTIDE 1,250 MCG in IV NS 0.9% 247.5 ML IV PRN ×2 (11:35→11:36)
--- NOTE | 2017-11-22 11:45 | NUR ---
X RAY TECHNICIAN NOTES SEEN AND EVALUATED BY DR HOBBS , DISCUSSED LABS , ABG RESULT , VENT SETTINGS CHANGED TO AC 26 , TV 450 FIO2 100 PEEP O SPO2 OF 72-75% , PUPILS FIXED AND DILATED 5MM , SR - ST 110 WITH EPISODES OF AFIB ON BEDSIDE MONITOR , NGT ON LOW INTERMITTENT SUCTION WITH MODERATE AMOUNT OF BLOODY SECRETION , FC DRAINING WITH LOW URINE OUTPUT , NO SODIUM BICARB DRIP AVAILABLE PER [facility] , PER DR HOBBS START PT ON NS @ 125ML/HR , S/P EGD DISCUSSED RESULT , MD PARK
[2017-11-22] MEDS ORDERED: IV NS 0.9% 1,000 ML IV PRN ×2 (12:00→15:00)
[2017-11-22] MEDS ORDERED: HYDROGEL DRESSING 90 GM TUBE TP PRN (13:30)
--- NOTE | 2017-11-22 14:45 | NUR ---
SPINNER BOX NOTES CALLED DR HOBBS DISCUSSED THAT ALL THE FAMILY IS HERE AND READY FOR COMFOT MEASURES , RECEIVED ORDER TO STOP ALL THE MEDICATIONS / PRESSORS , AND CHANGED FIO2 TO 30% , ORDERS CARRIED OUT ,
[2017-11-22] MEDS ORDERED: MORPHINE SULFATE INJ 4 MG/ML DISP.SYRIN IV PRN (15:00)
--- NOTE | 2017-11-22 15:40 | NUR ---
PT PRONOUNCED . COMFORT CARE DNI/DNR STATUS. FAMILY AT BEDSIDE. NO SPONTAN RESPIRATORY EFFORT. NO AUDIBLE HEART TONES. ASYSTOLE ON MONITOR. NO OBTAINABLE BP. PUPILS FIXED AND DILATED. DR HOBBS NOTIFIED
--- NOTE | 2017-11-22 16:45 | NUR ---
GATE AGENT NOTES [place] [facility] [place] AND [place]YNDA , PATIENT ID BAND IN PLACE WITH PROPER LABEL / TAG . BELONGING CHECKED AND SIGNED BY JOSUE CISNEROS .
== END 2017-11-22 15:40 | disposition expired | DRG 279 ==
LOC: ER 00:22 → TELE 03:35 → ICU 10:00
PROVIDERS: ADMIT Internal Medicine; ATTEND Internal Medicine
PROC: 5A1935Z Respiratory Ventilation, Less than 24 Consecutive Hours (ICD-10-PCS; principal; 2017-11-21 20:15)
PROC: 06L38CZ Occlusion of Esophageal Vein with Extraluminal Device, Via Natural or Artificial Opening Endoscopic (ICD-10-PCS; principal; 2017-11-21 20:15)
PROC: B548ZZA Ultrasonography of Superior Vena Cava, Guidance (ICD-10-PCS; principal; 2017-11-21 20:15)
PROC: 02HV33Z Insertion of Infusion Device into Superior Vena Cava, Percutaneous Approach (ICD-10-PCS; principal; 2017-11-21 20:15)
PROC: 0BH18EZ Insertion of Endotracheal Airway into Trachea, Via Natural or Artificial Opening Endoscopic (ICD-10-PCS; principal; 2017-11-21 20:15)
PROC: 30233N1 Transfusion of Nonautologous Red Blood Cells into Peripheral Vein, Percutaneous Approach (ICD-10-PCS; principal; 2017-11-21 20:15)
PROC: 30233K1 Transfusion of Nonautologous Frozen Plasma into Peripheral Vein, Percutaneous Approach (ICD-10-PCS; principal; 2017-11-21 20:15)
DX: K72.90 Hepatic failure, unspecified without coma (principal); R57.8 Other shock; J96.90 Respiratory failure, unspecified, unspecified whether with hypoxia or hypercapnia; G93.41 Metabolic encephalopathy; I85.11 Secondary esophageal varices with bleeding; N17.9 Acute kidney failure, unspecified; K92.2 Gastrointestinal hemorrhage, unspecified; K70.30 Alcoholic cirrhosis of liver without ascites; K76.6 Portal hypertension; E87.2 Acidosis; E87.1 Hypo-osmolality and hyponatremia; D69.6 Thrombocytopenia, unspecified; E83.39 Other disorders of phosphorus metabolism; D62 Acute posthemorrhagic anemia; E11.9 Type 2 diabetes mellitus without complications; F17.210 Nicotine dependence, cigarettes, uncomplicated; F32.9 Major depressive disorder, single episode, unspecified; F41.9 Anxiety disorder, unspecified; Z66 Do not resuscitate; Z85.3 Personal history of malignant neoplasm of breast; Z79.84 Long term (current) use of oral hypoglycemic drugs; Z91.19 Patient's noncompliance with other medical treatment and regimen; K21.9 Gastro-esophageal reflux disease without esophagitis; J45.909 Unspecified asthma, uncomplicated; I10 Essential (primary) hypertension; E87.5 Hyperkalemia; F10.129 Alcohol abuse with intoxication, unspecified; Y90.9 Presence of alcohol in blood, level not specified; D68.8 Other specified coagulation defects; I86.4 Gastric varices
CPT/HCPCS: 36415; 36600; 71045-TC; 80048-TC; 80076-TC; 82803-TC; 82962-TC; 83605-TC; 83690-TC; 83735-TC; 84100-TC; 84484-TC; 85025-TC; 85027-TC; 85730-TC; 86850-TC; 86921-TC; 87081-TC; 94002-TC; 94003-TC; 94799-TC; A4606; A6248; C1751; C9113; J0330; J1815; J2060; J2270; J2354; J2370; J2405; J2704; J2765; J3490; J7030; J7040; J7042; J7050; J7060; J7070; P9016-BL; P9017-BL; Z7610